=== PATIENT | male | born 1980 | race Two or more races ===

== ENCOUNTER 2022-06-20 16:27 | Emergency (ER) | payer SELFPAY ==
[2022-06-20] MEDS ORDERED: Ketorolac 60 MG/2 ML SDV IM ONE (16:51)
== END 2022-06-20 17:17 | disposition home or self-care (01) ==
LOC: JD.ED 16:27 → EDBD 16:27 → JD.ED 17:17
DX: K08.89 Other specified disorders of teeth and supporting structures (principal)
CPT/HCPCS: 96372; 99282; J1885

== ENCOUNTER 2024-05-23 14:32 | Emergency (ER) | payer BC ==
[2024-05-23] MEDS: Diphtheria,Pertussis(Acell),Tetanus Vaccine 0.5 ML Syringe IM ONE (15:30)
== END 2024-05-23 15:55 | disposition home or self-care (01) ==
LOC: JD.ED 14:32
DX: S60.021A Contusion of right index finger without damage to nail, initial encounter (principal); W23.1XXA Caught, crushed, jammed, or pinched between stationary objects, initial encounter; Z23 Encounter for immunization
CPT/HCPCS: 73140-26-F1; 73140-F1; 90471; 90715; 99283; 99283-25

== ENCOUNTER 2024-12-07 07:40 | Emergency (ER) | payer BC ==
[2024-12-07 08:04] LABS: BASOPHILS PERCENT AUTO 0.9 % (0.0-1.0); EOSINOPHILS ABSOLUTE AUTO 0.1 K/mm3 (0.0-0.4); EOSINOPHILS PERCENT AUTO 2.6 % (0.0-6.0); HEMATOCRIT 46.8 % (42.0-52.0); HEMOGLOBIN 15.5 gm/dl (14.0-18.0); IMMATURE GRAN ABSOLUTE AUTO 0.01 K/mm3 (0.00-0.05); IMMATURE GRAN PERCENT AUTO 0.2 % (0.0-0.4); LYMPHOCYTES ABSOLUTE AUTO 1.8 K/mm3 (1.0-4.8); LYMPHOCYTES PERCENT AUTO 40.1 % (24.0-44.0); MEAN CORPUSCULAR HEMOGLOBIN 26.2 pg (28.0-32.0); MEAN CORPUSCULAR HGB CONC 33.1 g/dl (32.0-36.0); MEAN CORPUSCULAR VOLUME 79.1 fl (83.0-99.0); MONOCYTES ABSOLUTE AUTO 0.6 K/mm3 (0.0-0.8); MONOCYTES PERCENT AUTO 13.2 % (0.0-8.0); PLATELET COUNT,PLT 168 K/mm3 (150-400); RED BLOOD CELL COUNT 5.92 M/mm3 (4.52-5.90); WHITE BLOOD CELL COUNT,WBC 4.56 K/mm3 (3.9-11.3)
[2024-12-07] MEDS ORDERED: Naloxone 0.4 MG/ML SDV IVPUSH PRN (08:06)
[2024-12-07] MEDS: Morphine 4 MG/ML Syringe IVPUSH ONE (08:12)
[2024-12-07] MEDS: Aspirin 81 MG Tab.Chew PO ONE (08:12)
[2024-12-07] MEDS: Sodium Chloride 0.9% 10 ML Syringe FLUSH PRN (08:13)
[2024-12-07 08:37] LABS: ANION GAP 12.3 (5-15); BUN/CREATININE RATIO 17.3 (14-18); CREATININE 1.1 mg/dL (0.7-1.3); EST CRCL DRUG DOSING (CG) 68.97 mL/min; POTASSIUM,K 4.3 mEq/L (3.5-5.1)
[2024-12-07 08:38] LABS: A/G RATIO 1.3 (1-2); ALBUMIN 3.8 g/dl (3.4-5.0); BILIRUBIN TOTAL 0.7 mg/dL (0.2-1.0); CALCIUM 8.8 mg/dL (8.5-10.1); MAGNESIUM 2.1 mg/dL (1.8-2.4); PROTEIN TOTAL,TP 6.8 g/dl (6.4-8.2)
[2024-12-07 09:39] LABS: APPEARANCE,URINE CLEAR (Clear); BILIRUBIN,URINE NEGATIVE (Negative); COLOR,URINE YELLOW (Yellow); GLUCOSE,URINE NEGATIVE (Negative); KETONES,URINE NEGATIVE (Negative); LEUKOCYTE ESTERASE,URINE NEGATIVE (Negative); NITRITE,URINE NEGATIVE (Negative); OCCULT BLOOD,URINE NEGATIVE (Negative); PH,URINE 6.5 (5.0-8.0); PROTEIN,URINE TRACE (Negative); UROBILINOGEN,URINE 0.2 (0.2-1.0)
[2024-12-07 10:09] LABS: EPITHELIAL CELLS,URINE 0-5 /hpf (0-5); RBC,URINE 0-5 /hpf (0-5); WBC,URINE 0-5 /hpf (0-5)
[2024-12-07] MEDS: Iopamidol 612 MG/ML 100 ML Bottle IVPUSH ONE (10:09)
[2024-12-07 10:10] LABS: BACTERIA,URINE RARE /hpf (FEW); MUCUS,URINE MODERATE /hpf (FEW)
[2024-12-07] MEDS: Sodium Chloride 0.9% 10 ML Syringe FLUSH ONE (10:12)
== END 2024-12-07 12:50 | disposition home or self-care (01) ==
LOC: JD.ED 07:40
DX: R07.9 Chest pain, unspecified (principal); R10.11 Right upper quadrant pain
CPT/HCPCS: 36415; 71045; 71260; 74177; 76705; 80053; 81001; 83605; 83690; 83735; 84484; 85025; 85379; 93005; 96374; 99285; A9270; J2270; Q9967; 93010; 99284